=== PATIENT | female | born 1990 | race Hispanic/Latino ===

== ENCOUNTER 2016-10-28 14:49 | Emergency (ER) | payer OTHER ==
[~2016-10-28] VITALS: Ht 149.9 cm; Wt 88.4 kg
[~2016-10-28 14:49] MED LIST: HYDR12.55 PO; IBUP800T28 PO; LEVO50TA6 PO
[2016-10-28 14:55] VITALS: BP 128/79; PULSE 128; O2SAT 96
[2016-10-28] MEDS ORDERED: HYDR25TA4 PO (15:01)
[2016-10-28] MEDS ORDERED: LEVO112T4 PO (15:01)
--- NOTE | 2016-10-28 15:23 | ED.REPORT ---
HPI- Female Date of Service Oct 28, 2016 ED Provider: Glo Roberts History of Present Illness: 25-year-old female here for left sided abdominal pain and flank pain,with fevers and bodyaches. Onset 2 days ago and is gradually increasing. No urinary symptoms. Feeling nauseous but has not vomited. Taking very little in orally. Significant history of UTIs as well as kidney stones. Last kidney stone or UTI was a year ago. This pain has been constant. Nursing Notes Stated Complaint: FEVER, BODY ACHES Chief Complaint: FLU/Cold Symptoms Allergies: Coded Allergies: No Known Allergies (Verified Allergy, Unknown, 08/29/16) Scheduled Hydrochlorothiazide (Hydrochlorothiazide) 25 Mg Tablet 25 MG PO DAILY Levothyroxine (Levothyroxine) 112 Mcg Tablet 112 MCG PO DAILY Sulfamethoxazole/Trimeth 800-160 mg (Bactrim DS 800-160 mg) 1 Each Tablet 1 TABLET PO BID Scheduled PRN Hydrocodone-Acetaminophen 5-325 mg (Hydrocodone-Acetaminophen 5-325 mg) 1 Each Tablet 1 TABLET PO Q4H PRN PRN For Pain Ondansetron ODT (Zofran ODT) 4 Mg Tablet 4 MG PO Q4H PRN PRN For Nausea General Time Seen by MD: 15:12 Chief Complaint Abdominal pain... (LLQ), Flank pain left Hx Obtained From: Patient Arrived By: Walk-in Sudden in Onset?: Yes Onset Occurred: 2 days ago Symptom Duration: Since onset Location: : Flank left: LLQ Quality: Throbbing Radiation: Does not radiate Severity: Current: Severe Severity: Maximum: Severe Recent Healthcare: No recent doctor visit Similar Sx Previous: Yes Past Medical History Past Medical History Notes: UTI, kidney stones Past Medical History Multiple episodes of ureteral colic Denies diabetes despite previous prescriptions for metformin-- not currently taking metformin Past Surgical History Negative Family History Noncontributory Smoking History Never Smoker Social History Alcohol Use: Denies alcohol use Drug Use: Denies drug use Other Social History: Local resident Ambulatory Status Independent Review of Systems Unable to Obtain ROS Patient condition Basic Review of Systems Eyes: Vision NL Respiratory: No shortness of breath Cardiovascular: No chest pain, No dyspnea on exertion Hematologic: No bleeding Allergy / Immune: No allergy Psychiatric: Normal thought content Constitutional: Reports: Fatigue, Fever, Malaise GI: Reports: Abdominal pain, Anorexia, Nausea Female: Reports: Flank pain, Denies: Dysuria Complete sys rev & neg: except as marked. Physical Exam Physical Exam Notes: Left CVA tenderness left mid abdominal tenderness Initial Vital Signs Vital Signs (First) Date Time Temp Pulse Resp B/P Pulse Ox O2 Delivery O2 Flow Rate FiO2 10/28/16 14:55 39.1 128 128/79 96 Room Air 10/28/16 16:46 22 General/Constitutional: Well-developed, Well-nourished Head / Eyes: Atraumatic, Normocephalic, PERRL ENT: Mucous membranes moist, Conjunctiva normal, No scleral icterus Neck: Supple, Non-tender, Full range of motion Respiratory: Breath sounds normal, Clear to auscultation, No respiratory distress Cardiovascular: Regular rate & rhythm, Heart sounds normal, Intact distal pulses Abdomen / GI: Soft, No guarding, No rebound, No distention Lymphatic: No lymphadenopathy Skin: Warm, Dry, No cyanosis Neurologic: Alert, Oriented, Nonfocal Psychiatric: Mood/affect normal, Behavior normal, Normal thought content Abdomen: Atraumatic Tenderness/Guarding/Rebound: Positive: Tender LLQ... (Moderate), Tender flank L Interpretation & Diagnostics Lab Results Interpretation Test 10/28/16 15:15 Urine Color Yellow (YELLOW) Urine Appearance Slightly cloudy Urine pH 7.0 (5.0-8.0) Urine Specific [place] 1.010 (1.003-1.035) Urine Protein Tracemg/dL (NEG,TRACE) Urine Glucose (UA) Negativemg/dL (NEGATIVE) Urine Ketones Negativemg/dL (NEGATIVE) Urine Occult Blood Moderate (NEGATIVE) Urine Nitrite Positive (NEGATIVE) Urine Bilirubin Negative (NEGATIVE) Urine Urobilinogen Normalmg/dL (NORMAL) Urine Leukocyte Esterase Small (NEGATIVE) Urine RBC 3-10/hpf (0-2) Urine WBC Packed/hpf (0-5) Urine Epithelial Cells Moderate/hpf (NONE-MOD) Urine Crystals None seen (NONE SEEN) Urine Bacteria Many/hpf (NONE-FEW) Urine Hyaline Casts None/lpf (NONE) Urine Granular Casts None seen (NONE SEEN) Urine Waxy Casts None seen (NONE SEEN) Urine Red Blood Cell Casts None seen (NONE SEEN) Urine White Blood Cell Casts None seen (NONE SEEN) Urine Mucus None seen (None Seen) Urine Trichomonas None seen (NONE SEEN) Urine Yeast None (NONE SEEN) Urinalysis Comment None Urine Culture Reflexed Indicated Re-Eval/Medical Decision Med Decision/Clinical Course Patient tolerating by mouth fluids. Pain is slightly decreased. No longer nauseous. Give Rocephin and send home. pain is improved. Requesting something for pain. will Give a few Vicodin. Discussed follow-up plan in 1-2 days with PCP. Return for worsening symptoms Discharge & Departure Shift Change Sign-Out Response to Therapy: Improved Impression: Primary Impression: Pyelonephritis Disposition: Home Discharge Condition All VS Reviewed: Yes Condition: Stable Patient Instructions: Acute Pyelonephritis (ED) Additional Instructions: Take antibiotics as prescribed, start tonight. Push fluids, take small sips frequently- this is very important. use hydrocodone as needed for severe pain. Follow up in the next 1-2 days with your primary care provider. If worsening fever, abdominal pain, urinary symptoms, or vomiting return to emergency room immediately. Referrals: NOPCP (PCP) EDSupervising Provider for APC: Ottoniel Jauregui MD, Linnea K ARNP Oct 28, 2016 15:23
[2016-10-28] MEDS ORDERED: Ketorolac 30 mg/mL 2 mL Inj IM ONE (15:45)
[2016-10-28] MEDS ORDERED: Ondansetron 8 mg ODT Tablet PO ONE (15:45)
[2016-10-28] MEDS ORDERED: cefTRIAXone Inj 1,000 MG, Lidocaine PF 1% Inj 2.1 ML in Syringe 0 EACH IM ONE (16:00)
[2016-10-28] MEDS ORDERED: SULF1TAB35 PO (16:11)
[2016-10-28 16:12] LABS: APPEARANCE,URINE SLIGHTLY CLOUDY (CLEAR,HAZY); COLOR,URINE YELLOW (YELLOW); OCCULT BLOOD,URINE MODERATE (NEGATIVE); UROBILINOGEN,URINE NORMAL (NORMAL)
[2016-10-28] MEDS ORDERED: ONDA4TAB9 PO (16:12)
[2016-10-28] MEDS ORDERED: HYDR-4003 PO (16:21)
[2016-10-28 16:46] VITALS: BP 143/81; PULSE 120; RESP 22; O2SAT 95
== END 2016-10-28 16:46 | disposition home or self-care (01) ==
LOC: SED 14:49
DX: N10 Acute pyelonephritis (principal); Z87.440 Personal history of urinary (tract) infections; Z87.442 Personal history of urinary calculi
CPT/HCPCS: 81000; 81025; 87077; 87086; 87088; 87186; 96372; 99284; J0696; J1885

== ENCOUNTER → 2016-11-21 | Day surgery (SDC) | payer OTHER ==
[~2016-11-21] VITALS: Ht 149.9 cm; Wt 88.8 kg
[2016-11-21] VITALS (8 sets, daily range): BP systolic 115–152; BP diastolic 51–91; PULSE 82–99; RESP 13–16; O2SAT 92–99
[~2016-11-21] MED LIST changes: +Atropine 0.4 mg/mL Inj IVPUSH PRN; +Clindamycin 900 mg/50 mL D5W IV ONE; +Clindamycin 900 mg/50 mL D5W Premix IV ONE; +Dexamethasone 4 mg/mL Inj IVPUSH PRN; +Dexamethasone 4 mg/mL Inj ONE; +EPHEDrine Sulfate 50 mg/mL Inj IVPUSH PRN; -HYDR12.55 PO; +HYDR25TA4 PO; +HYDROmorphone 1 mg/mL Inj IVPUSH PRN; -IBUP800T28 PO; +LEVO112T4 PO; -LEVO50TA6 PO; +Labetalol 5 mg/mL 4 mL Inj IV PRN; +Lactated Ringer's 1,000 ML IV SCH; +Lactated Ringer's 500 ML IV PRN; +MetoCLOpramide 5 mg/mL 2 mL Inj IVPUSH PRN; +Ondansetron 2 mg/mL 2 mL Inj IVPUSH PRN; +Ondansetron 2 mg/mL 2 mL Inj ONE; +Phenylephrine 10,000 mCg/mL Inj IVPUSH PRN; +Propofol 10,000 mCg/mL 20 mL Inj ONE; +fentaNYL-PF 50 mCg/mL 2 mL Inj ONE; +hydrALAZINE 20 mg/mL Inj IVPUSH PRN; +oxyCODONE-Acetamin 5-325 mg Tablet PO PRN
--- NOTE | 2016-11-21 07:34 | PCM.HPANE ---
Patient Data Surgeon Admitting Provider: Attending Provider:Terrence Hamilton MD Primary Care Physician:Carey Reyes MD Other Provider: Reason for Visit Post-Op Deformity Of Bilateral Breasts Ht/WT & BMI Height (Feet): 4 Height (Inches): 11 Weight (Kilograms): 88.8 Body Mass Index 39.00 Allergies Coded Allergies: No Known Allergies (Verified Allergy, Unknown, 11/16/16) Past Anesthesia History Anesthesia History: Denies:: Anesthesia Reactions, Fam Anesthesia Reaction, Fam Malignant Hypertherm, Malignant Hyperthermia Diabetes History Hx Diabetes?: No (PT DENIES, BUT HAS HAD SCRIPTS FOR METFORMIN IN THE PAST) MRSA MRSA: No Medications Reported Medications Levothyroxine 112 Mcg [id number] Mcg PO DAILY For Thyroid Replacement Ref 0 10/28/16 Hydrochlorothiazide 25 Mg [id number] Mg PO DAILY 30 Days Ref 0 10/28/16 Discontinued Scripts Hydrocodone-Acetaminophen 5-325 mg 1 Each Tablet1 Tablet PO Q4H PRN For Pain #5 TABLET Ref 0 Prov:Glo Roberts 10/28/16 Ondansetron ODT (Zofran ODT)4 Mg Tablet4 Mg PO Q4H PRN For Nausea #10 TABLET Ref 0 Prov:Glo Roberts 10/28/16 Sulfamethoxazole/Trimeth 800-160 mg (Bactrim DS 800-160 mg)1 Each Tablet1 Tablet PO BID #20 TABLET Ref 0 Prov:Glo Roberts 10/28/16 History History of ENT Problems?: Yes HEENT History: Positive for:: Sinus Problem (HX SINUSITIS) Hx of Heart Problems?: Yes Cardiovascular History: Positive for:: Hypertension (DURING ) Denies:: Congestive Heart Failure Heart Murmur Valvular Heart Disease Hx of Respiratory Problem?: Yes Respiratory History: Denies:: Tuberculosis Use of C-PAP Machine (SNORES) Hx Neurologic Problems?: No Hx of GI Problems?: Yes Gastrointestinal History: Positive for:: Heartburn (INTERMITTANT) Hx of Problems?: Yes Genitourinary History: Positive for:: Kidney Stones (HX OF RECURRENT) Urinary Tract Infection (ED VISIT FOR PYELONEPHRITIS 10/28/2016) Female Hx: Positive for:: Problems with Breasts? (S/P BREAST REDUCTION B/L) Denies:: Currently Skin History: Denies:: History Skin Disorders? Pressure Ulcers Hx Musculoskeletal Problems?: Yes Musculoskeletal History: Denies:: Back Injury (C/OF BACK/NECK PAIN R/T MACROMASTIA) Hx of Psycho/Social Problems?: No Hx Surgeries?: Yes (C/S, breast reduction) Hx Any Other Health Problems?: Yes Other History: Positive for:: Hospitalization (CHILDBIRTH) Thyroid Disease Denies:: Cancer Endocrine Disease History Blood Transfusions: Denies:: Blood Transfusions Hx Diabetes: No (PT DENIES, BUT HAS HAD SCRIPTS FOR METFORMIN IN THE PAST) Hx Alcohol Use: NoHx Substance Use: No Smoking Status: Never Smoker Have You Smoked inLast 12 mo: No Stop/Bang S-Snoring: Do You Snore Loudly: Yes T-Tired: feel tired, fatigued: Yes O-Obsered: Observed not breath: No P-Blood Pressure: treated: Yes B- Body Mass Index > 35 kg/m2: Yes A- Age over 50: No N- Neck Large Circumference: Yes G- Gender Male: No JEAN CARLOS Total Score: 3 JEAN CARLOS Risk Assessment: High Risk, =/>3 Yes JEAN CARLOS Category 4 OutPt Procedure: Yes Risk Assessment Category Category 1A: Patient has history of documented sleep apnea, and HAS NOT received any narcotic, sedative or anesthesia administration during this stay. Category 1B: Patient has history of documented sleep apnea, and HAS received any narcotic , sedative or anesthesia administration during this stay Category 2: Patient has SUSPECTED Obstructive Sleep Apnea, and HAS received any narcotic , sedative or anesthesia administration during this stay. Category 3: Patient has SUSPECTED Obstructive Sleep Apnea and HAS NOT received narcotic, sedative or anesthesia administration during this stay. Category 4: Outpatient in Procedural Areas with known sleep apnea or who screen positive for High Risk via the STOP/BANG questionnaire. Exam Exam Vital Signs Vital Signs Date Time Temp Pulse Resp B/P Pulse Ox O2 Delivery O2 Flow Rate FiO2 11/21/16 07:17 36.4 94 16 136/91 95 Room Air Plan Impression Patient chart reviewed, patient interviewed and anesthestic plan with risks, benefits, and alternatives discussed, and informed consent obtained. NPO Status: 0100 hic orange juice. Miguelito Kingston MD Nov 21, 2016 07:34
[2016-11-21] MEDS: Lactated Ringer's 1,000 ML IV SCH ×2 (07:35→08:55)
--- NOTE | 2016-11-21 09:55 | PCM.ANEP1 ---
Post Anesthesia Phase 1 PACU Phase 1 Assessment Vital Signs Vital Signs Date Time Temp Pulse Resp B/P Pulse Ox O2 Delivery O2 Flow Rate FiO2 11/21/16 09:45 37.0 99 16 152/90 99 Simple Mask 10 11/21/16 07:17 36.4 94 16 136/91 95 Room Air Anesthetic Administered: MAC Level of Alertness: Awake, talking CABALLERO's with Equal Strength: Yes Pain: No Nausea or Vomiting: No Oxygen Delivery: Simple Mask Miguelito Kingston MD Nov 21, 2016 09:55
[2016-11-21] MEDS: fentaNYL-PF 50 mCg/mL 2 mL Inj IVPUSH PRN ×2 (10:05→10:10)
--- NOTE | 2016-11-21 10:56 | PCM.ANEP2 ---
Post Anesthesia Evaluation ASA/CMS Post Anesthesia VS in Patient's Normal Range?: Yes Resp Stable; Airway Patent?: Yes CV Function & Hydration Stable: Yes Mental Status Recovered?: Yes Pain control Satisfactory?: Yes N/V Control Satisfactory?: Yes Miguelito Kingston MD Nov 21, 2016 10:56
--- NOTE | 2016-11-23 13:09 | OP ---
[address] [address] OPERATIVE REPORT PATIENT: BRANDYN AL : 1990 MR#: [id number] ADMIT: 11/21/2016 JOB ID: [id number] DATE OF SURGERY: 11/21/2016 PREOPERATIVE DIAGNOSIS(ES): Bilateral breast standing cutaneous deformity, postoperative. POSTOPERATIVE DIAGNOSIS(ES): Bilateral breast standing cutaneous deformity, postoperative. PROCEDURE: 1. Excision of right lateral standing cutaneous deformity, diameter excised 5 cm. 2. Layered closure of right lateral breast defect, total length of layered closure 15 cm. 3. Excision of left lateral breast standing deformity, diameter excised 7 cm. 4. Layered closure of left lateral breast deformity total length of layer closure 18 cm. SURGEON: Terrence Hamilton MD PREOPERATIVE DIAGNOSIS(ES): TRAINING TECHNICIAN: YVONNE Kurtz who was present for necessary retraction, exposure and closure of incisions. COMPLICATIONS: None apparent. ESTIMATED BLOOD LOSS: 20 cc. DRAINS: Bilateral #15 round Alberto drains, one on each side. 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 The patient continued to have residual standing cutaneous deformity bilaterally near the flank. These are interfering with her activities and range of motion. At this point, excision of the deformities are indicated. PROCEDURES AND FINDINGS: The patient was identified in the preoperative area and surgical site was marked. With the patient in the standing position, I marked the area of standing cutaneous deformity bilaterally. The patient was then taken back to the operating room and placed supine on operating table. Appropriate time-outs were taken. General anesthesia was induced smoothly. The patient was then prepped and draped in the usual sterile manner. I first turned my attention to the left side. Incision was then made around the previously made kory with a #10 blade. This was deepened down into the subcutaneous tissue. I dissected the soft tissue at a 45 degrees angle to angle the incisions superiorly and inferiorly towards each other. This allowed me to excise the standing cutaneous deformity as well as part of the underlying subcutaneous tissue. Once this has been done, hemostasis was obtained with electrocautery. The drain was then placed into the surgical site exiting at a separate lateral stab incision. The incision was then reapproximated first with a layer of 3-0 Monocryl deep dermal suture, followed by 4-0 Monocryl running subcuticular suture. Skin glue was applied. The left defect diameter was approximately 7 cm and the total length of layered closure was 18 cm. I then turned my attention to the right side. Again, incision was made around the previously made kory. Incision was beveled towards each other while deepening at approximately 45 degree angle allowing me to remove the skin and underlying subcutaneous tissue. Hemostasis was obtained with electrocautery. A drain was then placed. The incision was then reapproximated with a layer of 3-0 Monocryl deep dermal suture, followed by 4-0 Monocryl running subcuticular suture. The diameter excised was 5 cm and the total length of layered closure was 15 cm. The patient tolerated the procedure well. Needle count, sponge count, and instrument counts were correct at the end of the procedure. The patient was extubated and transported to recovery in stable condition. [facility]ARK
== END | disposition home or self-care (01) ==
LOC: SAS 06:50
PROVIDERS: ATTEND Plastic Surgery
DX: N65.0 Deformity of reconstructed breast (principal); N62 Hypertrophy of breast; Z87.442 Personal history of urinary calculi
CPT/HCPCS: 11406; 12036; J1100; J2175; J2250; J2405; J2765; J3010; J7120